=== PATIENT | male | born 1980 | race Caucasian/White ===

== ENCOUNTER 2017-06-29 00:11 | Emergency (ER) | payer MEDICAID, OTHER ==
--- NOTE | 2017-06-29 00:21 | EDPHY ---
H & P Source: Patient HPI/ROS: HPI CHIEF COMPLAINT: Psychotic behavior M1 hold, gravely disabled HISTORY OF PRESENT ILLNESS: This patient is a 36-year-old male, no medical history unknown psychiatric history, presents emergency room by EMS from the [facility] on an M1 hold. I have never seen this patient before. And mental health was not aware of him either. He arrives he has calmed however he does not participate in exam. He is refusing to answer any of my questions. Per the M1 bizarre behavior, gravely disabled. Past Medical History: Unknown psychiatric history her medical history ? Schizoaffective do. Past Surgical History: Unknown Social History: Unknown Family History: Unknown ROS REVIEW OF SYSTEMS: Review of systems and history is limited due to patient's clinical mental state. Exam Constitutional triage nursing summary reviewed, refusing vitals upon arrival to the emergency room. Com however uncooperative. Eyes normal conjunctivae and sclera, EOMI, PERRLA. HENT normal inspection, atraumatic, moist mucus membranes, no epistaxis, neck supple/ no meningismus, no raccoon eyes. Respiratory clear to auscultation bilaterally, normal breath sounds, no respiratory distress, no wheezing. Cardiovascular Tachycardic , regular rhythm, no murmur, no edema, distal pulses normal. Gastrointestinal soft, non-tender, no rebound, no guarding, normal bowel sounds, no distension, no pulsatile mass. Genitourinary no CVA tenderness. Musculoskeletal no midline vertebral tenderness, full range of motion, no calf swelling, no tenderness of extremities, no meningismus, good pulses, neurovascularly intact. Skin pink, warm, & dry, no rash, skin atraumatic. Neurologic awake, alert and oriented x 3, AAOx3, moves all 4 extremities equally, motor intact, sensory intact, CN II-XII intact, normal cerebellar, normal vision, normal speech. Psychiatric refusing to answer my questions. Comp, not cooperative, Heme/Lymph/Immune no lymphadenopathy. Differential Diagnosis: Includes but is not limited to in a particular order drug intoxication, substance abuse, underlying psychiatric illness, schizophrenia, gravely disabled Medical Decision Making: Plan for this patient patient is pacing in the room and mainly stays in the corner. He will need 10 mg IM Zyprexa. After the patient's somewhat abated will obtain vital signs. Blood clearance. Re-evaluation: 0622AM: Patient has been sleeping. He did receive 10 mg IM Zyprexa. Patient has not been conversive and has not answer any of my questions however he did tell nursing staff that he did not want the IV. He is pending mental health evaluation. Pending urine drug screen. Patient signed over at 7:00 a.m. shift change to Dr. Ta. ([facility]) Constitutional: Initial Vital Signs Temperature (C) 37.4 C 06/29/17 00:40 Heart Rate 124 H 06/29/17 00:40 Respiratory Rate 18 06/29/17 00:40 Blood Pressure 138/98 H 06/29/17 00:40 O2 Sat (%) 95 06/29/17 00:40 O2 Delivery Mode Room Air Allergies/Adverse Reactions: Unable to Assess Allergy (Unverified 06/29/17 00:47) Home Medications: Medication Instructions Recorded Unobtainable 06/29/17 Medical Decision Making Other Provider: I assumed care of the patient at 7 o'clock in the morning pending psychiatric disposition. The patient was evaluated by Psychiatry at noon. The patient is no longer intoxicated. He also no longer endorses any suicidal statements. The patient states he has had some depression over the illness of a recent family member. The patient has had mental health care in the past but apparently is on interested in seeking further care. The patient does contract for safety at this point time. The patient is given follow up with [facility] should he decide to reconsider his decision not to have medical care for his depression. The M1 psychiatric hold was vacated by Dr. Gomez from Psychiatry (Julius Ta) - Data Points Laboratory Results: Laboratory Results 06/29/17 02:08 06/29/17 02:08 06/29/17 06/29/17 06/29/17 09:00 02:08 02:08 WBC 10.97 10^3/uL H 10^3/uL (3.80-9.50) RBC 4.69 10^6/uL 10^6/uL (4.40-6.38) Hgb 15.5 g/dL g/dL (13.7-17.5) Hct 44.8 % % (40.0-51.0) MCV 95.5 fL fL (81.5-99.8) MCH 33.0 pg pg (27.9-34.1) MCHC 34.6 g/dL g/dL (32.4-36.7) RDW 13.1 % % (11.5-15.2) Plt Count 292 10^3/uL 10^3/uL (150-400) MPV 10.4 fL fL (8.7-11.7) Neut % (Auto) 72.0 % % (39.3-74.2) Lymph % (Auto) 22.6 % % (15.0-45.0) [place] % (Auto) 4.4 % L % (4.5-13.0) Eos % (Auto) 0.1 % L % (0.6-7.6) Baso % (Auto) 0.5 % % (0.3-1.7) Nucleat RBC Rel Count 0.0 % % (0.0-0.2) Absolute Neuts (auto) 7.91 10^3/uL H 10^3/uL (1.70-6.50) Absolute Lymphs (auto) 2.48 10^3/uL 10^3/uL (1.00-3.00) Absolute Monos (auto) 0.48 10^3/uL 10^3/uL (0.30-0.80) Absolute Eos (auto) 0.01 10^3/uL L 10^3/uL (0.03-0.40) Absolute Basos (auto) 0.05 10^3/uL 10^3/uL (0.02-0.10) Absolute Nucleated RBC 0.00 10^3/uL 10^3/uL (0-0.01) Immature Gran % 0.4 % % (0.0-1.1) Immature Gran # 0.04 10^3/uL 10^3/uL (0.00-0.10) Sodium 151 mEq/L H mEq/L (134-144) Potassium 4.2 mEq/L mEq/L (3.5-5.2) Chloride 113 mEq/L H mEq/L (97-110) Carbon Dioxide 20 mEq/l L mEq/l (22-31) Anion Gap 18 mEq/L H mEq/L (8-16) BUN 14 mg/dL mg/dL (7-23) Creatinine 1.0 mg/dL mg/dL (0.7-1.3) Estimated GFR > 60 Glucose 86 mg/dL mg/dL (70-100) Calcium 8.9 mg/dL mg/dL (8.5-10.4) Salicylates < 1.0 mg/dL L mg/dL (2.0-20.0) Urine Opiates Screen NEGATIVE (NEGATIVE) Acetaminophen < 10 mcg/mL L mcg/mL (10-30) Urine Barbiturates NEGATIVE (NEGATIVE) Ur Phencyclidine Scrn NEGATIVE (NEGATIVE) Ur Amphetamine Screen NEGATIVE (NEGATIVE) U Benzodiazepines Scrn NEGATIVE (NEGATIVE) Urine Cocaine Screen NEGATIVE (NEGATIVE) U Marijuana (THC) Screen NON-NEGATIVE H (NEGATIVE) Ethyl Alcohol 269 mg/dL H mg/dL (0-10) Medications Given: Discontinued Medications Sodium Chloride (Ns) 1,000 mls @ 0 mls/hr IV ONCE ONE PRN Reason: Wide Open Stop: 06/29/17 05:17 Last Admin: 06/29/17 05:27 Dose: 1,000 mls Olanzapine (Zyprexa Im Injection) 10 mg IV EDNOW ONE Stop: 06/29/17 00:29 Last Admin: 06/29/17 01:42 Dose: Not Given Olanzapine (Zyprexa Im Injection) 20 mg IM EDNOW ONE Stop: 06/29/17 00:49 Last Admin: 06/29/17 01:42 Dose: Not Given Olanzapine (Zyprexa Im Injection) 10 mg IM EDNOW ONE Stop: 06/29/17 01:13 Last Admin: 06/29/17 00:50 Dose: 10 mg Departure - Departure Disposition: Home, Routine, Self-Care Clinical Impression: Alcoholic intoxication Qualifiers: Complication of substance-induced condition: uncomplicated Qualified Code(s): F10.920 - Alcohol use, unspecified with intoxication, uncomplicated Condition: Good Instructions: Alcohol Intoxication (ED) Additional Instructions: 1. Please follow-up with the mental health resources provided in the ED today. 2. [facility] does operate a 24 psychiatric crisis unit located at [address] The telephone number for the 24 hour crisis center is [phone]. 3. Please return to the ED if you are feeling suicidal, having thoughts of harming yourself/others or should you feel unsafe or have worsening symptoms. Referrals: [facility],. [Clinic] - As per Instructions
[2017-06-29] MEDS ORDERED: OLANZapine 10 MG/2 ML VIAL IV ONE (00:28)
[2017-06-29] MEDS: OLANZapine 10 MG/2 ML VIAL IM ONE ×2 (00:50→01:42)
[2017-06-29] MEDS ORDERED: OLANZapine 10 MG/2 ML VIAL IM ONE (01:12)
[2017-06-29 02:32] LABS: % IMMATURE GRANULYOCYTES 0.4 % (0.0-1.1); ABSOLUTE IMMATURE GRANULOCYTES 0.04 10^3/uL (0.00-0.10); ADD DIFF? NO; ADD MORPH? NO; ADD SCAN? NO; ATYPICAL LYMPHOCYTE FLAG 0 (0-99); FRAGMENT RBC FLAG 0 (0-99); HEMATOCRIT 44.8 % (40.0-51.0); HEMOGLOBIN 15.5 g/dL (13.7-17.5); LEFT SHIFT FLG 0 (0-99); LIPEMIA HEMOLYSIS FLAG 90 (0-99); MEAN CELL HEMOGLOBIN CONCENTR. 34.6 g/dL (32.4-36.7); MEAN CELL VOLUME 95.5 fL (81.5-99.8); MEAN PLATELET VOLUME 10.4 fL (8.7-11.7); PLATELET CLUMPS FLAG 0 (0-99); PLATELET COUNT 292 10^3/uL (150-400); RED BLOOD CELL COUNT 4.69 10^6/uL (4.40-6.38); RED CELL DISTRIBUTION WIDTH 13.1 % (11.5-15.2)
[2017-06-29 02:41] LABS: ANION GAP 18 mEq/L (8-16); CALCIUM 8.9 mg/dL (8.5-10.4); CARBON DIOXIDE 20 mEq/l (22-31); CHLORIDE 113 mEq/L (97-110); ETHANOL SERUM 269 mg/dL (0-10); GLOMERULAR FILTRATION RATE > 60; GLUCOSE 86 mg/dL (70-100); POTASSIUM 4.2 mEq/L (3.5-5.2); SALICYLATE < 1.0 mg/dL (2.0-20.0); SODIUM 151 mEq/L (134-144)
[2017-06-29] MEDS ORDERED: NS 1,000 ML IV ONE (05:16)
[2017-06-29 09:00] VITALS: PULSE 81; RESP 18; TEMP 98.6; O2SAT 95
[2017-06-29 11:58] VITALS: BP 128/64
== END 2017-06-29 12:02 | disposition home or self-care (01) ==
LOC: EDUNIT#
DX: F10.920 Alcohol use, unspecified with intoxication, uncomplicated (principal)
CPT/HCPCS: 80305; G0480